=== PATIENT | female | born 1955 | race Caucasian/White ===

== ENCOUNTER 2022-02-13 13:50 | Inpatient (IN) | payer MEDICARE, SELFPAY ==
[2022-02-13] VITALS (40 sets, daily range): BP systolic 76–134; BP diastolic 49–81; PULSE 81–107; RESP 10–21; O2SAT 85–100
--- NOTE | ~2022-02-13 | CT_ITS ---
EXAMINATION: CT brain wo con INDICATION: Transient alteration of awareness COMPARISON: None TECHNIQUE: Standard unenhanced head CT. The dose-length product (DLP) was 605.33 mGy-cm. The mA was a djusted according to patient size. Iterative reconstruction technique was employed. FINDINGS: There is no acute intraparenchymal hemorrhage. No evidence of mass lesion. No evidence of a cute infarction. There is mild periventricular and subcortical hypodensity probably related to small vessel ischemic disease. There is mild prominence of the sulci and ventricles related to cerebral atr ophy. Intracranial calcified cerebral atherosclerosis is noted. There are no extra-axial collections. There is no mass effect or midline shift. The orbits and soft tissues are unremarkable. The visualiz ed sinuses and mastoid air cells are well aerated. IMPRESSION: 1. No acute intracranial abnormality. 2. Age related findings. Reviewed, dictated and finalized at location B.
--- NOTE | ~2022-02-13 | CT_ITS ---
EXAMINATION: CTA chest PE protocol DATE: 02/13/2022 17:49 INDICATION: Shortness of breath TECHNIQUE: Computed tomography (CT) pulmonary angiogram of the chest was performed with 100 mL Omnipa que-350 intravenous contrast. Additional 3D reconstructions utilizing coronal maximum intensity proje ction (MIP) were performed. Automated exposure control and iterative reconstruction technique were em ployed. The dose-length product was 239.27 mGy-cm. COMPARISON: None FINDINGS: Excellent contrast opacification of the pulmonary arteries. There is moderate streak artifact from de nse contrast in the superior vena cava and right atrium. Mild scattered respiratory motion artifact. Together this only minimally decreases sensitivity in some of the smaller subsegmental pulmonary alisia александр. No pulmonary embolism. Mild to moderate emphysema. Opacities and septal line thickening in the dependent aspect of the bilateral upper and lower lobes which could represent atelectasis and/or mild pulmonary edema. Small region of more confluent consolidation at the basilar right lower lobe with c orresponding volume loss and favor atelectasis over pneumonia. No pleural effusion or pneumothorax. M ild cardiomegaly. Atherosclerotic coronary artery calcification. No pericardial effusion. Thoracic ao rta is normal in caliber with no dissection. Mild mediastinal lymphadenopathy including 1.8 x 1.4 cm and 1.5 x 1.1 cm lymph nodes on the right and left sides of the brian respectively. Unilateral left sided breast implant. Abnormal contour to the spleen suggesting chronic scarring related to prior tra reese or infarcts. Moderate left renal atrophy with dilation of the left renal pelvis but not the calyc es. Anterior fusion at C6-C7 with severe degenerative disc disease at C7-T1. Mild thoracolumbar dextr oscoliosis. Mild thoracic and moderate upper lumbar spondylosis. Chronic compression fractures at T11 , T12 and L1. IMPRESSION: 1. No pulmonary embolism. 2. Mild to moderate emphysema with dependent lung disease in the bilateral upper and lower lobes, is prominent in the right lower lobe where there is corresponding volume loss and favor atelectasis pote ntially with superimposed mild pulmonary edema. Pneumonia considered less likely. 3. Mild cardiomegaly. 4. Mild mediastinal lymphadenopathy, most likely reactive with differential including less likely met astatic disease or lymphoma. 5. Moderate left renal atrophy with prominent dilation of the left renal pelvis but without dilation of the calyces which suggests possible chronic UPJ obstruction. Reviewed, dictated and finalized at location A. IMPRESSION: 1. No pulmonary embolism. 2. Mild to moderate emphysema with dependent lung disease in the bilateral uppe r and lower lobes, is prominent in the right lower lobe where there is correspo nding volume loss and favor atelectasis potentially with superimposed mild pulm onary edema. Pneumonia considered less likely. 3. Mild cardiomegaly. 4. Mild mediastinal lymphadenopathy, most likely reactive with differential inc luding less likely metastatic disease or lymphoma. 5. Moderate left renal atrophy with prominent dilation of the left renal pelvis but without dilation of the calyces which suggests possible chronic UPJ obstru ction.
--- NOTE | ~2022-02-13 | XR_ITS ---
EXAMINATION: XR chest 1V portable DATE: 02/13/2022 15:53 INDICATION: Unresponsive. TECHNIQUE: A single frontal view of the chest was obtained. COMPARISON: None. FINDINGS: The patient is rotated to her right. There is mild scarring at left lung apex. There is a d iffuse interstitial pattern in the lungs. No pleural effusion or pneumothorax. The heart size is norm al. IMPRESSION: 1. Diffuse interstitial pattern in the lungs, consistent with mild pulmonary edema versus chronic chitra g disease. Reviewed, dictated and finalized at location A. IMPRESSION: 1. Diffuse interstitial pattern in the lungs, consistent with mild pulmonary ed uche versus chronic lung disease.
--- NOTE | 2022-02-13 15:08 | ED.GENADULT ---
HPI - General Adult General Chief complaint: Allergic Reaction Stated complaint: unresponsive after vanco Time Seen by Provider: 02/13/22 14:01 Source: patient, EMS, RN notes reviewed and other (Rehab staff) Mode of arrival: EMS Limitations: no limitations History of Present Illness HPI narrative: 66 years old white female been at [facility] since February 03 for IV meropenem, cellulitis lower extremity bilaterally. The residential physician noticed that the redness is not improving, started the patient on vancomycin. Within few minutes of the IV vancomycin patient developed tingling of the tongue, trouble breathing, blood pressure 12 went down and became hypoxic and slumped over. IV fluids started immediately, then called 911 to come to the emergency room. Patient normally not on oxygen unless she does activities, can go up to 2 L by nasal cannula. Patient quit smoking last month. Currently patient feeling okay denying any symptoms. Related Data Allergies Allergy/AdvReac Type Severity Reaction Status Date / Time acetaminophen [From Vicodin] AdvReac Hallucinati Verified 02/13/22 14:21 ng bupropion AdvReac Other Verified 02/13/22 14:21 hydrocodone [From Vicodin] AdvReac Hallucinati Verified 02/13/22 14:21 ng Penicillins AdvReac Other Verified 02/13/22 14:21 Sulfa (Sulfonamide AdvReac Unknown Verified 02/13/22 14:21 Antibiotics) Review of Systems Review of Systems: All systems reviewed & are unremarkable except as noted in HPI and below PMFSH Family History Family History Sibling Hypertension Father Congestive heart failure Diabetes mellitus Mother Pancreatic cancer Social History Social History Smoking packs per day: 2 Smoking cigarettes per day: 40.0 Years smoked: 40 Smoking pack-years: 80.00 Smoking status: Current every day smoker Second hand tobacco smoke exposure: Yes Exam Narrative: General appearance: Well-developed, well-nourished Skin: Normal color Head: Normocephalic, nontraumatic Eyes: Clear conjunctiva ENT: Oropharynx normal, ears normal, nose normal Neck: Supple, nontender Chest and respiratory: Airway patent, slight diminution of air entry bilaterally, slight labored breathing no accessory muscle use Heart: Regular rate/rhythm Abdomen: Soft, nontender, no organomegaly, quiet bowel sounds Vascular: Normal peripheral pulses, normal capillary refill. Musculoskeletal: Normal range of motion, nontender back Neurologic: Alert and oriented ?3, [employer] is normal as tested, no gross motor deficit Course Course Emergency Course: Anaphylactoid reaction is my concern. Within few minutes of IV vancomycin for the first time patient developed tingling numbness of the tongue lips, hypotension, dyspnea with hypoxia required nasal cannula oxygenation up to 6 L. Vital Signs Vital signs: Vital Signs Pulse Rate 107 H 02/13/22 13:56 Respiratory Rate 20 02/13/22 13:56 Pulse Oximetry 85 L 02/13/22 13:56 Pulse Rate 82 02/13/22 21:00 Respiratory Rate 12 02/13/22 21:00 Blood Pressure 95/50 L 02/13/22 20:31 Pulse Oximetry 97 02/13/22 16:46 Oxygen Delivery Nasal Cannula 02/13/22 14:11 Oxygen Flow Rate 6 02/13/22 14:11 Medical Decision Making Differential Diagnosis Differential Diagnosis: Anaphylactoid reaction to vancomycin Vital Signs Vital Signs: Vital Signs Pulse Rate 107 H 02/13/22 13:56 Respiratory Rate 20 02/13/22 13:56 Pulse Oximetry 85 L 02/13/22 13:56 Pulse Rate 82 02/13/22 21:00 Respiratory Rate 12 02/13/22 21:00 Blood Pressure 95/
--- NOTE | 2022-02-13 15:14 | ECG_ITS ---
Measurements Intervals [place] Rate: 88 P: 64 AL: 142 QRS: 50 QRSD: 96 T: 73 QT: 380 QTc: 461 Interpretive Statements SINUS RHYTHM BORDERLINE ST-T WAVE ABNORMALITY- HIGH LATERAL LEADS BORDERLINE ECG NO PREVIOUS ECG AVAILABLE FOR COMPARISON Electronically Signed On 02-13-2022 16:26:45 CDT by Zhang Cesar D.O.
[2022-02-13 15:58] LABS: Alveolar/Arterial O2 Gradient 139.1 mmHg; Base Excess ABG 5.8 mEq/l (+/-2.0); Fractional Inspired Oxygen 36 %; Oxygen Content ABG 21.4 %vol (16.0-22.0); Oxygen Saturation ABG 90.2 % (95.0-100.0); Oxyhemoglobin 89.1 % THb (90.0-100.0); PCO2 ABG 51.2 mmHg (35.0-45.0); PO2 ABG 58.2 mmHg (80.0-100.0); PO2 FiO2 Ratio Arterial Blood 1.62 %; Total Hemoglobin 17.1 g/dL (12.0-18.0); pH ABG 7.414 (7.350-7.450)
[2022-02-13 15:59] LABS: Device NASAL CANNULA; Modified Allen's Test Pass; Site Drawn RIGHT RADIAL
[2022-02-13 15:59] LABS: Basophils Percent Auto 0.3 % (0.2-1.2); Eosinophils Absolute Auto 0.7 K/mm3 (0-0.3); Eosinophils Percent Auto 4.4 % (0-4.4); Hematocrit 52.2 % (37.0-47.0); Hemoglobin 17.1 g/dL (12.0-15.0); Immature Granulocyte Percent A 0.6 % (0-0.5); Lymphocytes Absolute Auto 1.05 K/mm3 (0.9-3.2); Lymphocytes Percent Auto 6.8 % (18.3-44.2); Mean Corpuscular HGB Conc 32.8 g/dl (32-36); Mean Corpuscular Hemoglobin 31.7 pg (26-34); Mean Corpuscular Volume 96.8 fl (80-100); Mean Platelet Volume 10.3 fl (7.4-10.4); Monocytes Absolute Auto 0.9 K/mm3 (0.1-0.6); Monocytes Percent Auto 5.9 % (2.6-8.5); Neutrophils Absolute Auto 12.7 K/mm3 (1.3-6.7); Platelet Count Result 272 k/mm3 (150-375); Red Blood Count 5.39 M/mm3 (4.2-5.4); White Blood Count 15.5 K/mm3 (4.5-10.0)
[2022-02-13 16:10] LABS: Alanine Aminotransferase 31 U/L (6-35); Albumin Level 3.9 g/dL (3.5-5.1); Alkaline Phosphatase 92 U/L (38-126); Anion Gap 11 mmol/L (8-16); Aspartate Amino Transferase 49 U/L (14-36); Bilirubin,Total 0.6 mg/dL (0.2-1.3); Blood Urea Nitrogen 23 mg/dL (7-17); Calcium 9.1 mg/dL (8.4-10.2); Carbon Dioxide 35 mmol/L (22-30); Chloride 94 mmol/L (98-107); Estimated CRCL calculation 62 ml/min; Estimated Glomerular Filt Rate > 60; Glucose 120 mg/dL (65-110); Potassium 3.1 mmol/L (3.4-5.0); Sodium 140 mmol/L (137-145)
[2022-02-13 16:22] LABS: Troponin I < 0.012 ng/mL (0.000-0.034)
[2022-02-13 16:27] LABS: INR 1.1; Prothrombin Time 13.5 Seconds (11.1-14.7)
[2022-02-13 16:28] LABS: Partial Thromboplastin Time 33.2 SECONDS (22.3-36.8)
[2022-02-13] MEDS: diphenhydrAMINE HCl INJ 50 MG/ML VIAL IV PUSH (16:32)
[2022-02-13] MEDS: methylPREDNISolone SOD SUCC 125 MG VIAL IV PUSH (16:33)
[2022-02-13] MEDS: IPRATROPIUM BR 0.02% INH SOLN 0.5 MG/2.5 ML VIAL INHALATION (16:38)
[2022-02-13] MEDS: ALBUTEROL SULFATE NEB 2.5 MG/3 ML INH 5 MG INHALATION ×3 (16:38→17:09)
[2022-02-13] MEDS: POTASSIUM CHLORIDE 20 MEQ PACKET (FOR LIQUID) 40 MEQ PO (16:40)
[2022-02-13 17:07] LABS: D Dimer 2.93 ug/mL (<0.48)
[2022-02-13 17:29] LABS: Appearance Urine Clear (Clear); Bilirubin Urine 1+ (Negative); Color Urine Yellow (Yellow); Glucose Urine UA Negative (Negative); Ketones Urine Trace mg/dL (Negative); Leukocyte Esterase Ur Negative LEU/UL (Negative); Nitrate Urine Negative (Negative); Protein Urine 1+ mg/dL (Negative); Urobilinogen Urine 0.2 mg/dL (<2.0)
[2022-02-13 17:44] LABS: Budding Yeast Urine Present /hpf; Hyaline Casts Urine 20-29 /lpf; Mucus Urine Rare /lpf; Squamous Epithelial Cell Urine Rare /hpf (Few); WBC Clumps Urine Present /HPF
[2022-02-13 17:54] LABS: Add Urine Microscopic? YES; Blood Urine Trace-Intact (Negative)
--- NOTE | 2022-02-13 23:14 | PM.IMHP ---
H&P: HPI History of Present Illness Date/Time: 02/13/22 23:14 Chief Complaint: Allergic reaction. [facility] Family History Family History Sibling Hypertension Father Congestive heart failure Diabetes mellitus Mother Pancreatic cancer Social History Social History Smoking packs per day: 2 Smoking cigarettes per day: 40.0 Years smoked: 40 Smoking pack-years: 80.00 Smoking status: Current every day smoker Tobacco type: cigarettes Second hand tobacco smoke exposure: Yes Alcohol intake: never Substance use: never Substance use type: does not use Spiritual care concerns: No Meds Home Medications and Allergies Home Medications Medication Instructions Recorded Confirmed Type citalopram 40 mg tablet 40 mg PO DAILY 02/14/22 02/14/22 History furosemide 40 mg tablet 40 mg PO BID 02/14/22 02/14/22 History melatonin 5 mg tablet 5 mg PO HS PRN Sleep 02/14/22 02/14/22 History potassium chloride 10 mEq 10 meq PO BID 02/14/22 02/14/22 History tablet,extended release pregabalin 200 mg capsule 200 mg PO TID 02/14/22 02/14/22 History tramadol 50 mg tablet 50 mg PO TID PRN Pain 02/14/22 02/14/22 History Allergies Allergy/AdvReac Type Severity Reaction Status Date / Time acetaminophen [From Vicodin] AdvReac Hallucinati Verified 02/14/22 02:46 ng bupropion AdvReac Other Verified 02/14/22 02:46 hydrocodone [From Vicodin] AdvReac Hallucinati Verified 02/14/22 02:46 ng Penicillins AdvReac Other Verified 02/14/22 02:46 Sulfa (Sulfonamide AdvReac Unknown Verified 02/14/22 02:46 Antibiotics) vancomycin AdvReac Unconscious Verified 02/14/22 02:46 Vital Signs Vital Signs - 24 hr 02/13/22 14:11 02/13/22 13:56 02/13/22 14:18 Pulse Rate 96 107 H 97 Respiratory Rate 18 20 17 Blood Pressure 112/67 Pulse Oximetry 97 85 L 97 Oxygen Delivery Nasal Cannula Oxygen Flow Rate 6 02/13/22 14:30 02/13/22 14:31 02/13/22 16:25 Pulse Rate 95 96 84 Respiratory Rate 17 16 10 L Blood Pressure 109/64 107/70 Pulse Oximetry 96 97 96 Oxygen Delivery Oxygen Flow Rate 02/13/22 14:35 02/13/22 14:45 02/13/22 14:46 Pulse Rate 93 90 90 Respiratory Rate 14 13 13 Blood Pressure 97/63 L Pulse Oximetry 99 100 100 Oxygen Delivery Oxygen Flow Rate 02/13/22 15:01 02/13/22 15:02 02/13/22 15:15 Pulse Rate 88 87 86 Respiratory Rate 13 13 13 Blood Pressure 115/63 Pulse Oximetry 100 99 98 Oxygen Delivery Oxygen Flow Rate 02/13/22 16:09 02/13/22 16:16 02/13/22 16:37 Pulse Rate 88 88 82 Respiratory Rate 15 16 11 L Blood Pressure Pulse Oximetry 90 91 Oxygen Delivery Oxygen Flow Rate 02/13/22 17:28 02/13/22 16:30 02/13/22 16:31 Pulse Rate 92 82 83 Respiratory Rate 15 11 L 11 L Blood Pressure 122/70 Pulse Oximetry 93 93 Oxygen Delivery Oxygen Flow Rate 02/13/22 16:45 02/13/22 16:46 02/13/22 17:02 Pulse Rate 88 84 86 Respiratory Rate 18 16 13 Blood Pressure 134/81 76/49 L Pulse Oximetry 99 97 Oxygen Delivery Oxygen Flow Rate 02/13/22 17:03 02/13/22 17:05 02/13/22 17:51 Pulse Rate 87 86 97 Respiratory Rate 13 13 21 H Blood Pressure 102/68 Pulse Oximetry Oxygen Delivery Oxygen Flow Rate 02/13/22 17:52 02/13/22 18:00 02/13/22 18:15 Pulse Rate 95 95 90 Respiratory Rate 11 L 13 13 Blood Pressure 107/51 L Pulse Oximetry Oxygen Delivery Oxygen Flow Rate 02/13/22 18:31 02/13/22 18:45 02/13/22 19:16 Pulse Rate 91 89 84 Respiratory Rate 16 13 13 Blood Pressure Pulse Oximetry Oxygen Delivery Oxygen Flow Rate 02/13/22 19:31 02/13/22 19:45 02/13/22 19:51 Pulse Rate 83 81 84 Respiratory Rate 13 13 13 Blood Pressure 92/53 L Pulse Oximetry Oxygen Delivery Oxygen Flow Rate 02/13/22 20:03 02/13/22 20:15 02/13/22 20:30 Pulse Rate 83 82 81 Respirator
[2022-02-14] VITALS (12 sets, daily range): BP systolic 104–128; BP diastolic 57–73; PULSE 80–90; RESP 13–20; TEMP 36.3–37; O2SAT 90–100
--- NOTE | 2022-02-14 01:41 | ADMGEN ---
This patient, Areli Puentes, was admitted to Medical Room 342-01. Patient/family oriented to hospital policies and general routines including ID bracelet, bed and alarms, visiting hours, pain management, procedures, bathroom and other care routines, personal items, smoking policy, room service/diet, and visiting hours. Information on how to activate the Rapid Response Team has been discussed. Patient/Family are encouraged to report perceived risks to care and to ask questions if they do not understand what they are told or what they should do.
[2022-02-14] MEDS: methylPREDNISolone SOD SUCC 125 MG VIAL 60 MG IV PUSH ×2 (02:09→12:41)
[2022-02-14] MEDS: FLUCONAZOLE 150 MG TABLET PO (03:43)
[2022-02-14] MEDS: traMADol HCL (*CRX) 50 MG TABLET PO ×2 (03:43→14:45)
[2022-02-14] MEDS: ALBUTEROL SULFATE NEB 2.5 MG/3 ML INH 5 MG INHALATION ×3 (08:58→20:37)
[2022-02-14] MEDS: IPRATROPIUM BR 0.02% INH SOLN 0.5 MG/2.5 ML VIAL INHALATION ×3 (08:58→20:37)
[2022-02-14] MEDS: CITALOPRAM HYDROBROMIDE 20 MG TABLET 40 MG PO (08:59)
[2022-02-14] MEDS: FUROSEMIDE 40 MG TABLET PO ×2 (08:59→16:42)
[2022-02-14] MEDS: PREGABALIN (*CRX) 50 MG CAPSULE 200 MG PO ×3 (09:00→16:50)
[2022-02-14] MEDS: POTASSIUM CHLORIDE 10 MEQ TABLET.ER PO ×2 (09:00→16:42)
[2022-02-14 13:14] LABS: Basophils Percent Auto 0.1 % (0.2-1.2); Hematocrit 44.3 % (37.0-47.0); Hemoglobin 14.6 g/dL (12.0-15.0); Immature Granulocyte Absolute 0.07 K/mm3 (0.00-0.031); Immature Granulocyte Percent A 0.5 % (0-0.5); Lymphocytes Absolute Auto 1.12 K/mm3 (0.9-3.2); Lymphocytes Percent Auto 7.6 % (18.3-44.2); Mean Corpuscular Hemoglobin 31.8 pg (26-34); Mean Corpuscular Volume 96.5 fl (80-100); Mean Platelet Volume 10.6 fl (7.4-10.4); Monocytes Absolute Auto 0.2 K/mm3 (0.1-0.6); Neutrophils Absolute Auto 13.4 K/mm3 (1.3-6.7); Neutrophils Percent Auto 90.8 % (45.5-73.1); Platelet Count Result 280 k/mm3 (150-375); Red Blood Count 4.59 M/mm3 (4.2-5.4); Red Cell Distribution Width 15.1 % (11.5-14.5); White Blood Count 14.8 K/mm3 (4.5-10.0)
[2022-02-14 13:25] LABS: Alanine Aminotransferase 29 U/L (6-35); Albumin Level 3.8 g/dL (3.5-5.1); Alkaline Phosphatase 74 U/L (38-126); Anion Gap 11 mmol/L (8-16); Aspartate Amino Transferase 43 U/L (14-36); Bilirubin,Total 0.4 mg/dL (0.2-1.3); Blood Urea Nitrogen 20 mg/dL (7-17); Calcium 8.7 mg/dL (8.4-10.2); Carbon Dioxide 31 mmol/L (22-30); Chloride 96 mmol/L (98-107); Estimated CRCL calculation 62 ml/min; Estimated Glomerular Filt Rate > 60; Glucose 191 mg/dL (65-110); Potassium 4.2 mmol/L (3.4-5.0); Sodium 138 mmol/L (137-145)
--- NOTE | 2022-02-14 14:46 | PM.IMPN ---
Progress Note: A&P Assessment and Plan (1) Anaphylactoid reaction: Code(s): T78.2XXA - Anaphylactic shock, unspecified, initial encounter Status: Acute (2) Cellulitis of right lower extremity without foot: Code(s): L03.115 - Cellulitis of right lower limb Status: Acute (3) Acute hypokalemia: Code(s): E87.6 - Hypokalemia Status: Acute Plan Anaphylactic reaction with vancomycin was started in the rehab facility started with tingling of the tongue trouble breathing blood pressure drop with hypoxia and slumped. Improved with IV fluid and steroid treatment with Benadryl and Pepcid. Add vancomycin to allergies which is already done Hypotension likely due to anaphylaxis chest x-ray with diffuse interstitial pattern in the lungs consistent with mild pulmonary edema versus chronic lung disease. CT head was negative. CTA chest with no PE but shows mild to moderate emphysema with dependent lung disease in the bilateral upper and lower lobes prominent in the right lower lobe where there is corresponding volume loss and fever atelectasis post density with superimposed mild pulmonary edema. There is mild cardiomegaly and mild mediastinal lymphadenopathy. On consciousness likely related anaphylaxis. CT head is negative rightl lower extremity cellulitis with open ulcer which seems to be from trauma while getting into her car pain. Culture grew Pseudomonas aeruginosa treated with meropenem plan for total of 10 days. Venous duplex has been negative for DVT. Hypoxic respiratory failure needing oxygen likely from COPD multiple sclerosis Anxiety depression Scoliosis Neuropathy COPD Functional paraplegia patient bed/ wheelchair-bound Chronic pain syndrome Active tobacco user Osteoarthritis Left kidney atrophy DVT prophylaxis Lovenox Subjective Date/time seen: 02/14/22 14:46 Interval history: 66 years old white female been at [facility] since February 03 for IV meropenem, cellulitis lower extremity bilaterally.? The snf physician noticed that the redness is not improving, started the patient on vancomycin.? Within few minutes of the IV vancomycin patient developed tingling of the tongue, trouble breathing, blood pressure 12 went down and became hypoxic and slumped over.? IV fluids started immediately, then called 911 to come to the emergency room. Patient normally not on oxygen unless she does activities, can go up to 2 L by nasal cannula. Patient quit smoking last month.? Currently patient feeling okay denying any symptoms. feeling well. Remains on oxygen feeling better. Leg was swollen but is improving. Redness still persist. Has a small open ulcer on lateral side of her right leg. Review of Systems Review of Systems: All systems reviewed & are unremarkable except as noted in HPI and below Exam Narrative: General appearance: Well-developed, well-nourished Skin: Normal color, no rash Head: Normocephalic, nontraumatic ENT: Oropharynx normal, ears normal, nose normal Neck: Supple, nontender Chest and respiratory: Airway patent, no respiratory distress Heart: Regular rate/rhythm; S1 S2 Abdomen: Soft, nontender, no organomegaly Vascular: Normal peripheral pulses, normal capillary refill. Musculoskeletal: Normal range of motion, non tender Neurologic: Alert and oriented ?3, [employer] is normal as tested, no gross motor deficit Objective Data Vital Signs Vital Signs: Vital Signs - 24 hr 02/13/22 16:25 02/13/22 15:01 02/13/22 15:02 Temperature Pulse Rate 84 88 87 Respiratory Rate 10 L 13 13 Blood Pressure 107/70 115/63 Pulse Oximetry 96 100 99 Oxygen Delivery Oxygen Flow Rate 02/13/22 15:15 02/13/22 16:09 02/13/22 16:16 Temperature Pulse Rate 86 88 88 Respiratory Rate 13 15 16 Blood Pressure Pulse Oximetry 98 90 91 Oxygen Delivery Oxygen Flow Rate 02/13/22 16:37 02/13/22 17:28 02/13/22 16:30 Temperature Pulse Rate 82 92 82 Respiratory Ra
[2022-02-14] MEDS: methylPREDNISolone SOD SUCC 40 MG VIAL IV PUSH (17:07)
[2022-02-15] MEDS: traMADol HCL (*CRX) 50 MG TABLET PO (02:05)
[2022-02-15 06:00] VITALS: BP 133/61; PULSE 75; RESP 18; TEMP 36.3; O2SAT 92
[2022-02-15] MEDS: IPRATROPIUM BR 0.02% INH SOLN 0.5 MG/2.5 ML VIAL INHALATION (07:20)
[2022-02-15] MEDS: ALBUTEROL SULFATE NEB 2.5 MG/3 ML INH 5 MG INHALATION (07:20)
[2022-02-15 07:21] VITALS: PULSE 70; RESP 20
[2022-02-15 07:43] VITALS: PULSE 82; RESP 20
[2022-02-15] MEDS: POTASSIUM CHLORIDE 10 MEQ TABLET.ER PO ×2 (08:09→16:22)
[2022-02-15] MEDS: FUROSEMIDE 40 MG TABLET PO ×2 (08:09→16:22)
[2022-02-15] MEDS: PREGABALIN (*CRX) 50 MG CAPSULE 200 MG PO ×3 (08:09→16:42)
[2022-02-15] MEDS: CITALOPRAM HYDROBROMIDE 20 MG TABLET 40 MG PO (08:09)
[2022-02-15] MEDS: methylPREDNISolone SOD SUCC 40 MG VIAL IV PUSH ×2 (08:09→16:22)
[2022-02-15 08:41] LABS: Alanine Aminotransferase 30 U/L (6-35); Albumin Level 3.7 g/dL (3.5-5.1); Alkaline Phosphatase 80 U/L (38-126); Anion Gap 8 mmol/L (8-16); Aspartate Amino Transferase 41 U/L (14-36); Bilirubin,Total 0.3 mg/dL (0.2-1.3); Blood Urea Nitrogen 19 mg/dL (7-17); Calcium 9.2 mg/dL (8.4-10.2); Carbon Dioxide 34 mmol/L (22-30); Chloride 97 mmol/L (98-107); Estimated CRCL calculation 81 ml/min; Estimated Glomerular Filt Rate > 60; Glucose 98 mg/dL (65-110); Magnesium 2.2 mg/dL (1.6-2.3); Potassium 3.8 mmol/L (3.4-5.0); Sodium 139 mmol/L (137-145)
[2022-02-15 10:39] LABS: Basophils Percent Auto 0.2 % (0.2-1.2); Eosinophils Percent Auto 0.1 % (0-4.4); Hematocrit 44.7 % (37.0-47.0); Hemoglobin 14.8 g/dL (12.0-15.0); Immature Granulocyte Absolute 0.06 K/mm3 (0.00-0.031); Immature Granulocyte Percent A 0.5 % (0-0.5); Lymphocytes Absolute Auto 1.87 K/mm3 (0.9-3.2); Lymphocytes Percent Auto 16.4 % (18.3-44.2); Mean Corpuscular HGB Conc 33.1 g/dl (32-36); Mean Corpuscular Hemoglobin 32.2 pg (26-34); Mean Corpuscular Volume 97.2 fl (80-100); Mean Platelet Volume 11.1 fl (7.4-10.4); Monocytes Absolute Auto 0.7 K/mm3 (0.1-0.6); Monocytes Percent Auto 6.3 % (2.6-8.5); Neutrophils Absolute Auto 8.7 K/mm3 (1.3-6.7); Neutrophils Percent Auto 76.5 % (45.5-73.1); Platelet Count Result 263 k/mm3 (150-375); Red Cell Distribution Width 15.4 % (11.5-14.5); White Blood Count 11.4 K/mm3 (4.5-10.0)
[2022-02-15 13:26] VITALS: PULSE 91; RESP 12
[2022-02-15] MEDS: ALBUTEROL SULFATE NEB 2.5 MG/0.5 ML INH 5 MG (13:26)
[2022-02-15] MEDS: IPRATROPIUM BR 0.02% INH SOLN 0.5 MG/2.5 ML VIAL (13:26)
[2022-02-15 13:31] VITALS: PULSE 88; RESP 12
[2022-02-15 14:00] VITALS: BP 121/62; PULSE 79; RESP 16; TEMP 36.1; O2SAT 94
--- NOTE | 2022-02-15 14:52 | PM.DS ---
DS: Admitting Diagnosis Discharge Date 02/15/2022 Admitting Diagnosis anaphylactic reaction DS: Discharge Diagnosis Discharge Diagnosis (1) Anaphylactoid reaction: Code(s): T78.2XXA - Anaphylactic shock, unspecified, initial encounter Status: Acute (2) Cellulitis of right lower extremity without foot: Code(s): L03.115 - Cellulitis of right lower limb Status: Acute (3) Acute hypokalemia: Code(s): E87.6 - Hypokalemia Status: Acute Plan DS: Summary Hospital Course Hospital Course: #Anaphylactic reaction with vancomycin was started in the rehab facility started with tingling of the tongue trouble breathing blood pressure drop with hypoxia and slumped. Improved with IV fluid and steroid treatment with Benadryl and Pepcid. Add vancomycin to allergies which is already done. Will switch Solu-Medrol to prednisone and continue for 5 more days. #Hypotension likely due to anaphylaxis chest x-ray with diffuse interstitial pattern in the lungs consistent with mild pulmonary edema versus chronic lung disease. CT head was negative. CTA chest with no PE but shows mild to moderate emphysema with dependent lung disease in the bilateral upper and lower lobes prominent in the right lower lobe where there is corresponding volume loss and fever atelectasis post density with superimposed mild pulmonary edema. There is mild cardiomegaly and mild mediastinal lymphadenopathy. # unconsciousness likely related anaphylaxis. CT head is negative # rightl lower extremity cellulitis with open ulcer which seems to be from trauma while getting into her car pain. Culture grew Pseudomonas aeruginosa treated with meropenem plan for total of 10 days. Venous duplex has been negative for DVT. continue meropenem to complete the course as previously stated. I do not at the end date noted in the chart as was suggested by the Infectious Disease # Hypoxic respiratory failure needing oxygen likely from COPD continues to improve still needing 1-2 L oxygen at rest. Will discharge her on that continue to taper at the rehab facility #multiple sclerosis #Anxiety depression #Scoliosis #Neuropathy #COPD #Functional paraplegia patient bed/ wheelchair-bound #Chronic pain syndrome #Active tobacco user #Osteoarthritis #Left kidney atrophy #DVT prophylaxis Lovenox Time Spent with Patient Time attestation: Total time spent providing and/or coordinating discharge services: 50 minutes Exam Narrative: General appearance: Well-developed, well-nourished Skin: Normal color, no rash Head: Normocephalic, nontraumatic ENT: Oropharynx normal, ears normal, nose normal Neck: Supple, nontender Chest and respiratory: Airway patent, no respiratory distress Heart: Regular rate/rhythm; S1 S2 Abdomen: Soft, nontender, no organomegaly Vascular: Normal peripheral pulses, normal capillary refill. Musculoskeletal: Normal range of motion, non tender Neurologic: Alert and oriented ?3, MEDICAL RADIATION THERAPIST is normal as tested, no gross motor deficit DS: Data Data Completed and Pending Labs on day of discharge: Labs from last 24 hours 02/15/22 02/15/22 02/14/22 08:00 08:00 13:08 WBC 11.4 H 14.8 H RBC 4.60 4.59 Hgb 14.8 14.6 Hct 44.7 44.3 MCV 97.2 96.5 MCH 32.2 31.8 MCHC 33.1 33.0 RDW 15.4 H 15.1 H Plt Count 263 280 MPV 11.1 H 10.6 H Immature Gran % (Auto) 0.5 0.5 Neut % (Auto) 76.5 H 90.8 H Lymph % (Auto) 16.4 L 7.6 L [place] % (Auto) 6.3 1.0 L Eos % (Auto) 0.1 0.0 Baso % (Auto) 0.2 0.1 L Lymph # (Auto) 1.87 1.12 [place] # (Auto) 0.7 H 0.2 Eos # (Auto) 0.0 0.0 Baso # (Auto) 0.0 0.0 Abs Immat Gran (auto) 0.06 H 0.07 H Absolute Neuts (auto) 8.7 H 13.4 H Absolute Nucleated RBC 0.0 0.0 Nucleated RBC % 0.0 0.0 Sodium 139 Potassium 3.8 Chloride 97 L Carbon Dioxide 34 H Anion Gap 8 BUN 19 H Creatinine 0.60 L Estim Creat Clear Calc 81 Estimated GFR > 60
== END 2022-02-15 17:20 | DRG 915 ==
LOC: ANHED 22:53 → ANH3MED 02-14 00:55
PROVIDERS: Admitting Provider Internal Medicine; Emergency Provider Emergency Medicine; PCP Family Medicine; Visit Provider Internal Medicine
DX: T88.6XXA Anaphylactic reaction due to adverse effect of correct drug or medicament properly administered, initial encounter (principal); J96.91 Respiratory failure, unspecified with hypoxia; R40.20 Unspecified coma; L03.115 Cellulitis of right lower limb; G82.20 Paraplegia, unspecified; L97.919 Non-pressure chronic ulcer of unspecified part of right lower leg with unspecified severity; T36.8X5A Adverse effect of other systemic antibiotics, initial encounter; E87.6 Hypokalemia; J43.9 Emphysema, unspecified; F17.210 Nicotine dependence, cigarettes, uncomplicated; I95.89 Other hypotension; G35 Multiple sclerosis; F41.8 Other specified anxiety disorders; M41.9 Scoliosis, unspecified; G62.9 Polyneuropathy, unspecified; M19.90 Unspecified osteoarthritis, unspecified site; N26.1 Atrophy of kidney (terminal); Z74.01 Bed confinement status; Z99.3 Dependence on wheelchair; Z79.899 Other long term (current) drug therapy; Z88.0 Allergy status to penicillin; Z88.2 Allergy status to sulfonamides; Z88.8 Allergy status to other drugs, medicaments and biological substances
CPT/HCPCS: 36415; 36600; 70450; 71045; 71275; 80053; 81001; 82805; 83735; 84484; 85025; 85380; 85610; 85730; 87040; 87086; 87088; 93005; 94640; 96374; 96375; 99285; A9270; G0378; J1200; J2185; J2920; J2930; Q9967